=== PATIENT | female | born 1935 | race Caucasian/White ===

== ENCOUNTER 2016-09-14 13:18 | Inpatient (IN) ==
--- NOTE | 2016-09-14 14:05 | Diag Imaging Result Doc PS360 ---
FLAT/UPRIGHT ABD/1 VIEW CHEST - 09/14/2016 INDICATION: abd pain/constipation TECHNIQUE: Three views COMPARISON: 12/09/2015 FINDINGS: There is a rather large hiatal hernia behind the heart stable from prior. No infiltrates. Heart size is grossly normal. There is severe diffuse constipation with rectal stool impaction. There is a rectal stool ball measuring almost 10 cm. No small bowel obstruction. IMPRESSION: Severe constipation with rectal stool impaction. Electronically signed by Jeff Buckner 09/14/2016 2:03 PM
[2016-09-14 14:31] LABS: MANUAL DIFF NEEDED? NO
[2016-09-14] MEDS ORDERED: NS 1,000 ML IV ONE (14:31)
[2016-09-14 14:37] LABS: BASO% 0.5 % (0.0-0.8); EOS% 0.8 % (0.0-10.0); HEMATOCRIT 41.9 % (37.0-47.0); HEMOGLOBIN 13.8 g/dL (12.0-16.0); IMM GRAN# 0.06 X1000 (0.0-0.04); IMM GRAN% 0.5 % (0.0-0.5); LYMPH# 1.82 X1000 (1.2-3.4); LYMPH% 14.3 % (20.5-51.1); MCH 28.8 PG (27-31); MCHC 32.9 g/dL (33-37); MCV 87.5 FL (81-99); MONO# 0.99 X1000 (0.11-0.59); MONO% 7.8 % (1.7-9.3); NEUT% 76.1 % (42.2-75.2); PLT 259 X1000 (130-400); RBC 4.79 XMIL (4.2-5.4)
[2016-09-14 14:58] LABS: CALCIUM 9.3 mg/dL (8.8-10.2); POTASSIUM 4.2 mmol/L (3.5-5.1); TOTAL BILIRUBIN 0.4 mg/dL (0.20-1.00); TOTAL PROTEIN 7.8 g/dL (6.3-8.3)
[2016-09-14 15:38] LABS: BILIRUBIN URINE NEGATIVE (NEGATIVE); BLOOD URINE 4+ (NEGATIVE); CLARITY VERY CLOUDY (CLEAR); COLOR YELLOW; GLUCOSE URINE NEGATIVE (NEGATIVE); LEUKOCYTES URINE 2+ (NEGATIVE); NITRITE URINE NEGATIVE (NEGATIVE); PH URINE 6.5; PROTEIN URINE 1+(30 mg/dL) mg/dL (NEGATIVE); UROBILINOGEN URINE NORMAL
[2016-09-14 15:39] LABS: URINE SOURCE CLEAN CATCH
[2016-09-14 15:40] LABS: URINE CULTURE PL NEEDED? YES; URINE EPITHELIAL CELLS <10 /HPF (<10); URINE WBC TNTC /HPF (<10)
[2016-09-14] MEDS ORDERED: ROCEPHIN 1 GM/NS 1 GM/50 ML IVPB IV ONE (15:48)
--- NOTE | 2016-09-14 17:03 | Diag Imaging Result Doc PS360 ---
EXAM: CT ABD/PELVIS W/ IV CONT ONLY INDICATION: Abd pain TECHNIQUE: Dose reduction protocol was used. COMPARISON: Unenhanced CT dated 12/11/2015 FINDINGS: There is stable chronic elevation of the left hemidiaphragm. There is mild subsegmental atelectasis and/or scarring at the lung bases. There are small calcified granulomata in the spleen. There is a small amount of layering high dense sludge or stones in the gallbladder lumen. This is very vague. There is no pericholecystic inflammatory change appreciated. The liver is grossly unremarkable. The pancreas and adrenal glands are unremarkable. There are a few prominent nonobstructing intrarenal stones on the left. There is no hydronephrosis appreciated. There is gas in the lumen of the urinary bladder. There are several small gas droplets that appear to be associated with the wall of the urinary bladder. 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 There is no evidence of significant urinary bladder wall thickening or surrounding inflammatory stranding, however. On the delayed images, there is irregular nodularity at the posterior inferior wall of the urinary bladder. I can identify no discrete enhancement here, however. There is increased stool in the colon and a fairly large amount stool in the rectum suggesting rectal fecal impaction. The impacted rectum measures up to 7.8 cm in diameter. There is no evidence of bowel obstruction. There is uncomplicated sigmoid colonic diverticulosis. The reproductive tract is grossly unremarkable. There has been a prior right hip arthroplasty. 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 There are degenerative changes involving the spine. IMPRESSION: 1.Gas droplets in the urinary bladder with a few small droplets that may be associated wall of the bladder suggesting emphysematous cystitis. Please correlate clinically. 2.Nodular irregularity involving the posterior inferior wall of the urinary bladder with no definite enhancement that is nonspecific. Consider follow-up ultrasound. 3.Nonobstructive nephrolithiasis on the left. 4.Rectal fecal impaction. 5.Other incidental/nonacute findings detailed above. Electronically signed by Wili Berg 09/14/2016 5:01 PM
--- NOTE | 2016-09-14 17:31 | PROVIDER DOCUMENTATION ---
This chart was entered by Carmelo Ley Scribe, acting as scribe for Rajesh Gong MD. HPI-General Adult - General Chief Complaint: General Adult Stated Complaint: abdominal pain Time Seen by Provider: 09/14/16 14:14 Source: patient, family Allergies/Adverse Reactions: Patient Allergies Allergy/AdvReac Type Severity Reaction Status Date / Time acetaminophen Allergy Unknown Verified 09/14/16 13:28 morphine AdvReac Unknown Verified 09/14/16 13:28 Penicillins AdvReac Unknown Verified 09/14/16 13:28 Sulfa (Sulfonamide AdvReac Unknown Verified 09/14/16 13:28 Antibiotics) Home Medications: Home Medication List Medication Instructions Recorded Confirmed Last Taken Type Docusate Sodium 100 mg PO BID 12/23/14 01/14/16 01/13/16 07:00 History Mirtazapine 15 mg PO QHS 12/23/14 01/14/16 01/12/16 21:00 History Paroxetine [Paxil] 10 mg PO DAILY 12/23/14 01/14/16 01/12/16 21:00 History Aspirin EC 81 mg PO DAILY 12/07/15 01/14/16 12/10/15 History Gentamicin 0.3% Oph Drops 2 drop OPH PRN PRN 12/07/15 01/14/16 12/07/15 History Pantoprazole [Protonix] 40 mg PO DAILY@0700 12/07/15 01/14/16 01/13/16 07:00 History CefTRIAXONE 2 GM/NS [Rocephin 2 2 gm IV DAILY 01/08/16 01/14/16 01/13/16 13:00 History gm/Ns] Cilostazol 50 mg PO DAILY 01/08/16 01/14/16 01/13/16 07:00 History Folic Acid 1 mg PO DAILY 01/08/16 01/14/16 01/13/16 07:00 History Vancomycin 1 gm IV EVERY OTHER DAY 01/08/16 01/14/16 01/13/16 11:30 History Vitamin B Complex 1 each PO DAILY 01/08/16 01/14/16 01/13/16 07:00 History - History of Present Illness -Gen Adult Nature of Presenting Problems: Patient is a 81 y/o F that presents to the ER via EMS with abdominal pain that began this am. patient has been constipated over past few days. patient has history of UTI's as well. patient reports watching a doctor show on tv and it made her paranoid Location of Pain/Injury: reports: abdomen Quality of Pain: reports: aching, cramping Severity: reports: moderate Onset/Duration: reports: gradual, this morning Timing: reports: still present, improving Context/Activities at Onset: reports: none Modifying Factors: improves with: nothing Associated Symptoms: reports: constipation. denies: back/neck pain, chest pain , fever/chills, genitourinary problems, nausea, shortness of breath, vomiting Similar Symptoms Previously?: Yes Recently seen or treated by another doctor?: No Review of Systems - Adult - REVIEW OF SYSTEMS - ADULT Constitutional: denies: chills, fever Eyes: reports: no symptoms reported Ears, Nose, Mouth & Throat: denies: ear discharge, ear pain, sinus problem, throat pain, throat swelling Cardiovascular: denies: chest pain, palpitations, syncope Respiratory: denies: cough, shortness of breath, wheezing Gastrointestinal: reports: abdominal pain, constipation. denies: diarrhea, nausea, vomiting Genitourinary: reports: no symptoms reported Musculoskeletal: reports: no symptoms reported Integumentary: reports: no symptoms reported Neurological: reports: no symptoms reported Psychiatric: reports: no symptoms reported Endocrine: reports: no symptoms reported Hematologic/Lymphatic: reports: no symptoms reported Allergic/Immunologic: reports: no symptoms reported All Other Systems: Reviewed and Negative Past History - Adult - PAST MEDICAL HISTORY-ADULT Review of Records: reports: Old Records Reviewed Major Childhood Illnesses: reports: denies history Neurological: reports: CVA Endocrine/Immune: reports: Diabetes - PRIOR SURGERIES/PROCEDURES Surgical/Procedure History: reports: appendectomy, orthopedic (extremity), joint replacement - IMMUNIZATION STATUS Childhood Immunizations: See Nurse Assessment Flu Vaccine: See Nurse Assessment Physical Exam-General - PHYSICAL EXAM-ADULT Initial Vital Signs Reviewed: Yes - CONSTITUTIONAL General Appearance: alert, no apparent distress - EYES Eyes: PERRL/EOMI, pink conjunctivae - HEAD, EARS, NOSE, MOUTH & THROAT HENMT: normocephalic/atraumatic, moist mucous membranes, normal ENT inspection - NECK Neck: full range of motion, normal inspection - RESPIRATORY Respiratory: lungs clear, normal breath sounds, no respiratory distress, no accessory muscle use - CARDIOVASCULAR Cardiovascular: no edema, no murmur, tachycardia - GASTROINTESTINAL (ABDOMEN) Abdominal Exam: normal bowel sounds, soft, no organomegaly, no pulsatile mass, tenderness (suprapubic) - MUSCULOSKELETAL Back Exam: no CVA tenderness, no vertebral tenderness Extremity: no pedal edema, no calf tenderness - SKIN Integumentary: normal color, warm/dry - NEUROLOGIC 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, grossly normal - PSYCHIATRIC Psych/Mental Status: normal mood/affect, normal thought content, normal thought process, oriented x 3 Progress - PLAN OF CARE/RESULTS Progress/Plan/Lab Results: Vital Signs - 8 hr 09/14/16 13:31 Temperature 97 F L Pulse Rate 109 H Respiratory Rate 20 Blood Pressure 129/76 O2 Sat by Pulse Oximetry 97 Orders Category Date Time Status NPO Diet 09/14/16 13:23 Active FLAT/UPRIGHT ABD/1 VIEW CHEST [RAD] Stat Exams 09/14/16 13:23 Completed AMYLASE [CHEM] Stat Lab 09/14/16 13:23 Ordered CBC WITH ELECTRONIC DIFF [HEME] Stat Lab 09/14/16 13:23 Ordered COMPREHENSIVE METABOLIC PANEL [CHEM] Stat Lab 09/14/16 13:23 Ordered LIPASE [CHEM] Stat Lab 09/14/16 13:[address] W/POSS RFLX CULT [URINALYSIS] Stat Lab 09/14/16 13:23 Uncollected Vital Signs Temp Pulse Resp BP Pulse Ox 09/14/16 15:19 97.0 F L 105 H 20 128/80 96 09/14/16 13:31 97 F L 109 H 20 129/76 97 acetaminophen Allergy (Verified 09/14/16 13:28) Unknown morphine Adverse Reaction (Verified 09/14/16 13:28) Unknown Penicillins Adverse Reaction (Verified 09/14/16 13:28) Unknown Sulfa (Sulfonamide Antibiotics) Adverse Reaction (Verified 09/14/16 13:28) Unknown Docusate Sodium 100 mg PO BID 12/23/14 Mirtazapine 15 mg PO QHS 12/23/14 Paroxetine [Paxil] 10 mg PO DAILY 12/23/14 Aspirin EC 81 mg PO DAILY 12/07/15 Gentamicin 0.3% Oph Drops 2 drop OPH PRN PRN 12/07/15 Pantoprazole [Protonix] 40 mg PO DAILY@0700 12/07/15 CefTRIAXONE 2 GM/NS [Rocephin 2 gm/Ns] 2 gm IV DAILY 01/08/16 Cilostazol 50 mg PO DAILY 01/08/16 Folic Acid 1 mg PO DAILY 01/08/16 Vancomycin 1 gm IV EVERY OTHER DAY 01/08/16 Vitamin B Complex 1 each PO DAILY 01/08/16 Dietary Diet NPO Start TueSep 14 1323 Laboratory 09/14/16 09/14/16 09/14/16 15:00 14:30 14:30 WBC RBC Hgb Hct MCV MCH MCHC RDW Std Deviation Plt Count MPV Immature Gran % (Auto) Neut % (Auto) Lymph % (Auto) Collin % (Auto) Eos % (Auto) Baso % (Auto) Immature Gran # (Auto) Neut # (Auto) Lymph # (Auto) Collin # (Auto) Eos # (Auto) Baso # (Auto) Sodium Potassium Chloride Carbon Dioxide Anion Gap BUN Creatinine Estimated GFR/1.73 m2 BUN/Creatinine Ratio Glucose Calculated Osmolality Calcium Magnesium 2.4 Total Bilirubin AST ALT Alkaline Phosphatase Troponin T 0.029 Total Protein Albumin Globulin Albumin/Globulin Ratio Amylase Lipase Urine Source CLEAN CATCH Urine Color YELLOW Urine Clarity VERY CLOUDY A Urine pH 6.5 Ur Specific Matthews 1.010 Urine Protein 1+(30 mg/dL) A Urine Ketones NEGATIVE Urine Blood 4+ Urine Nitrite NEGATIVE Urine Bilirubin NEGATIVE Urine Urobilinogen NORMAL Urine Microscopic RBC 10-20 A Urine WBC 2+ A Urine Microscopic WBC TNTC A Ur Epithelial Cells <10 Urine Bacteria 3+ Urine Glucose NEGATIVE 09/14/16 09/14/16 14:28 14:28 WBC 12.74 H RBC 4.79 Hgb 13.8 Hct 41.9 MCV 87.5 MCH 28.8 MCHC 32.9 L RDW Std Deviation 16.3 H Plt Count 259 MPV 11.0 H Immature Gran % (Auto) 0.5 Neut % (Auto) 76.1 H Lymph % (Auto) 14.3 L Collin % (Auto) 7.8 Eos % (Auto) 0.8 Baso % (Auto) 0.5 Immature Gran # (Auto) 0.06 H Neut # (Auto) 9.71 H Lymph # (Auto) 1.82 Collin # (Auto) 0.99 H Eos # (Auto) 0.10 Baso # (Auto) 0.06 Sodium 137 Potassium 4.2 Chloride 102 Carbon Dioxide 22 L Anion Gap 13 BUN 27 H Creatinine 1.1 H Estimated GFR/1.73 m2 47 BUN/Creatinine Ratio 25 Glucose 112 H Calculated Osmolality 280 Calcium 9.3 Magnesium Total Bilirubin 0.40 AST 25 ALT 14 Alkaline Phosphatase 111 H Troponin T Total Protein 7.8 Albumin 4.0 Globulin 4.0 Albumin/Globulin Ratio 1.0 Amylase 56 Lipase 48 Urine Source Urine Color Urine Clarity Urine pH Ur Specific Matthews Urine Protein Urine Ketones Urine Blood Urine Nitrite Urine Bilirubin Urine Urobilinogen Urine Microscopic RBC Urine WBC Urine Microscopic WBC Ur Epithelial Cells Urine Bacteria Urine Glucose ct abd/pelv report 1)gas droplets in urinary bladder with a few small droplets suggesting emphysematous cystitis 2)nodular irregularity involving the posterior inferior wall of urinary bladder with no definite enhancement 3)nonobstructive nephrolithiasis on the left 4) rectal fecal impaction Result Diagrams: 09/14/16 14:28 09/14/16 14:28 - XRAY 1 XRAY Study: Chest, Abdomen Impression: Abnormal XRAY Interpretation: severe constipation with rectal stool impaction, hiatal hernia - CT/MRI 1 CT Study: Abdomen, Pelvis Impression: Abnormal CT Results: see progress note for complete report - CONSULTS/PCP/HOSPITALIST Notification #1 *Consult/PCP/Hospitalist*: ( irrigation installation specialist for hospitalist) Time Discussed: 17:24 Reason/Comments: uti, emphysematous cystitis Consult Disposition: Admit Departure - Departure Date of Disposition Decision: 09/14/16 Time of Disposition Decision: 17:27 DIAGNOSIS: UTI (urinary tract infection), Emphysematous cystitis, Abdominal pain Disposition: ADMITTED INPATIENT 09 Certified Medical Emergency: Emergent Condition: Stable Referrals and Follow-Ups: Donte Bar [Primary Care Provider] - - Critical Care Note This patient required my direct & personal management of CC.: No Attestation - Physician/ SHAKIRA Attestation Patient care was provided by Advanced Practice Provider:: No The physician spent face to face time with patient:: Yes Advanced Practice Provider documentation review:: Supervising physician onsite and consulted in the evaluation and care of this patient. The physician did have a face to face encounter with the patient. This chart was documented by the indicated scribe, (Carmelo Ley, Man) and accurately reflects the services I performed and decisions made by , Rajesh Gong MD, as attested by the provider's signature.
[2016-09-14] MEDS ORDERED: MISC. PHARMACY COMMUNICATION SCH (21:28)
[2016-09-14] MEDS ORDERED: VANCOMYCIN IV PER PHARMACY MISC SCH (21:28)
[2016-09-14] MEDS ORDERED: NS 1,000 ML IV SCH (21:28)
[2016-09-14] MEDS ORDERED: ZOFRAN IV PRN (21:28)
[2016-09-14] MEDS ORDERED: VANCOMYCIN 1 GM/NS 1 GM/250 ML IVPB IV ONE (22:00)
[2016-09-14] MEDS ORDERED: GENTAMICIN 0.3% OPH DROPS OPH PRN (22:47)
[2016-09-14] MEDS ORDERED: VANCOMYCIN 500 MG/NS 500 MG/100 ML IVPB IV ONE (23:00)
[2016-09-14] MEDS: MELATONIN PO SCH (23:32)
[2016-09-14] MEDS: PAXIL PO SCH (23:32)
[2016-09-14] MEDS: TRILAFON PO SCH (23:32)
[2016-09-14] MEDS: REMERON PO SCH (23:32)
[2016-09-14] MEDS: COLACE PO SCH (23:33)
[2016-09-15 06:12] LABS: HEMATOCRIT 39.4 % (37.0-47.0); HEMOGLOBIN 12.8 g/dL (12.0-16.0); MCH 28.7 PG (27-31); MCHC 32.5 g/dL (33-37); MCV 88.3 FL (81-99); MPV 11.9 FL (7.4-10.4); RBC 4.46 XMIL (4.2-5.4)
[2016-09-15] MEDS: PROTONIX PO SCH ×2 (06:13→08:28)
[2016-09-15] MEDS: PRILOSEC PO SCH ×2 (06:13→08:28)
[2016-09-15 06:25] LABS: CALCIUM 8.8 mg/dL (8.8-10.2); POTASSIUM 4.1 mmol/L (3.5-5.1)
[2016-09-15] MEDS ORDERED: NON-FORMULARY BULK MED PR SCH (08:00)
[2016-09-15] MEDS: COLACE PO SCH ×2 (08:27→20:17)
[2016-09-15] MEDS: PLETAL PO SCH (08:27)
[2016-09-15] MEDS: ASPIRIN EC PO SCH (08:29)
[2016-09-15] MEDS: FOLTX PO SCH (08:29)
[2016-09-15] MEDS: TRILAFON PO SCH ×2 (08:29→20:17)
[2016-09-15] MEDS: FOLIC ACID PO SCH ×2 (08:29→20:17)
--- NOTE | 2016-09-15 08:42 | PROGRESS NOTE ---
DATE: 09/15/2016 SUBJECTIVE: Patient notes that she is feeling a little bit better this morning. Denies any chest pain or palpitations. OBJECTIVE: Vital Signs: Reviewed. Temperature 97 degrees, pulse 84, respiratory rate 18, BP 125/61, saturation 97% on room air. General: Patient is awake alert, oriented. Currently in no respiratory distress. Neck: Supple. CV: Regular rate. Chest: Clear. Abdomen: Soft. Extremities: Moves all extremities. Neurologic: No changes. ASSESSMENT: 1. Leukocytosis, slightly improved. WBCs dropped from 12-10. 2. Urinary tract infection. Continue antibiotics. 3. Nonobstructive nephrolithiasis on the left. 4. Rectal impaction. We will continue symptomatic treatment. cc: Skyler Ascencio MD
[2016-09-15] MEDS: ROCEPHIN 1 GM/NS 1 GM/50 ML IVPB IV SCH (16:03)
[2016-09-15] MEDS ORDERED: CALMOSEPTINE OINTMENT TOP PRN (18:17)
[2016-09-15] MEDS: REMERON PO SCH (20:17)
[2016-09-15] MEDS: PAXIL PO SCH (20:17)
[2016-09-15] MEDS: MELATONIN PO SCH (20:18)
[2016-09-16] MEDS: PROTONIX PO SCH (06:07)
[2016-09-16] MEDS: PRILOSEC PO SCH ×2 (06:10→08:35)
[2016-09-16] MEDS: PLETAL PO SCH (08:35)
[2016-09-16] MEDS: FOLIC ACID PO SCH ×2 (08:35→20:50)
[2016-09-16] MEDS: ASPIRIN EC PO SCH (08:35)
[2016-09-16] MEDS: COLACE PO SCH ×2 (08:35→20:50)
[2016-09-16] MEDS: FOLTX PO SCH (08:35)
[2016-09-16] MEDS: TRILAFON PO SCH ×2 (08:35→20:50)
--- NOTE | 2016-09-16 08:57 | PROGRESS NOTE ---
DATE: 09/16/2016 SUBJECTIVE: Patient without any new complaints today. In fact, she is somewhat uninterested in answering questions this morning. OBJECTIVE: Vital Signs: Temp 98, pulse 71, respiratory rate 18, BP 116/56, sat 96% on room air. General: The patient is awake, alert. She is in no respiratory distress. She does respond to commands after being asked a couple of times. HEENT: Normocephalic, atraumatic. Neck: Supple. CV: Regular rate. Chest: Relatively clear. Abdomen: Soft. Extremities: Moves all extremities. Neurologic: No changes. LABORATORY DATA: CBC normal. CMP unchanged. Urinalysis growing gram-negative rods. ASSESSMENT: 1. Leukocytosis, improved. 2. Urinary tract infection growing gram-negative rods. Continue antibiotics. 3. Nonobstructive nephrolithiasis on the left. We will discuss with Urology as she certainly may need removal of stones with the current urinary tract infection. 4. Rectal impaction, improved. We will recheck KUB today. cc: Skyler Ascencio MD
--- NOTE | 2016-09-16 08:58 | Diag Imaging Result Doc PS360 ---
EXAM: KUB ABDOMEN HISTORY: constipation TECHNIQUE: COMPARISON: 09/14/2016 FINDINGS: There continues to be stool throughout the colon. The bowel loops are not dilated. No organomegaly. Mild scoliosis with degenerative spine changes. Moderate atherosclerosis. There has been prior orthopedic replacement of the right hip. IMPRESSION: Persistent constipation although this appears slightly less pronounced than on the prior exam. Electronically signed by Carson Reyna 09/16/2016 8:56 AM
[2016-09-16] MEDS ORDERED: VANCOMYCIN 1,300 MG in NS 250 ML IV SCH (10:00)
--- NOTE | 2016-09-16 15:31 | HISTORY AND PHYSICAL ---
CHIEF COMPLAINT: Abdominal pain, confusion. HISTORY OF PRESENT ILLNESS: This is an 81-year-old female who presented to the emergency room via EMS after becoming confused. The daughter states that the patient was watching a doctor show and became confused shortly after but later in the visit, the daughter stated that she and the son had argued and the mother became confused. The daughter denied knowing any other complaints or illnesses from the mother other than abdominal pain secondary to constipation. The daughter states that constipation is a problem with the patient and that she had used MiraLAX in the past with a good result but the patient has been changed to Colace and once changed she has started having recurring problems of constipation. They deny any diarrhea, liquid stools, any black or bloody vomitus or stools. CT scan of the abdomen and pelvis was performed which revealed gas droplets in the bladder suggesting emphysematous cystitis, a rectal fecal impaction measuring up to 7.8 cm in diameter with no evidence of bowel obstruction. She was given Colace and admitted for further evaluation and treatment. PAST MEDICAL HISTORY: CVA a few years ago, diabetes type 2 controlled with diet, recurrent UTI. PAST SURGICAL HISTORY: Appendectomy, joint replacement. SOCIAL HISTORY: She lives with her daughter. The daughter and patient deny alcohol, tobacco, or illicit drug use. ALLERGIES: Tylenol, morphine, penicillin, and sulfa with unknown reactions. HOME MEDICATIONS: A list will be obtained. REVIEW OF SYSTEMS: A 14 point review of systems is discussed with the patient. Pertinent positives stated in the HPI. The daughter states that the patient has had no other complaints that she is aware of and the patient is confused at present and we are unable to ascertain this. PHYSICAL EXAMINATION: VITAL SIGNS: Blood pressure 129/76 with a heart rate of 100, respirations are 20, temperature is 97 degrees, with room air saturations of 96 to 98%. HEENT: Head is normocephalic, atraumatic. Pupils equal, round, react to light. EOMs are intact. Sclerae anicteric. Mucous membranes are moist. NECK: Supple. Trachea midline. CARDIOVASCULAR: Tachycardic. S1 and S2 are heard. She has regular rate and rhythm with no murmurs, gallops, or rubs noted. PULMONARY: Breath sounds are coarse throughout, unlabored. Chest does rise and fall symmetrically respiration. GASTROINTESTINAL: Abdomen is soft, nontender, nondistended, with bowel sounds in all 4 quadrants. EXTREMITIES: No clubbing, cyanosis, or edema. Pulses are palpable x4. NEUROLOGIC: She is confused. She is able to state her name, her family's name, her birthday. She does move all extremities at random. DIAGNOSTICS: WBC is 12.7 with a hemoglobin of 13.8, hematocrit 41.9, and platelets of 259,000. Sodium 137, potassium 4.2, BUN 27, creatinine 1.1, with a glucose of 112. Urinalysis reveals too numerous to count white blood cells, 10-20 red blood cells, and 3+ bacteria. CT of the abdomen and pelvis revealed: 1. Gas droplets in the bladder. 2. Nodular irregularity involving the posterior inferior wall of the bladder with no definite enhancement, with follow up ultrasound recommended. 3. Nonobstructive nephrolithiasis on the left. 4. Rectal fecal impaction up to 7.8 cm in diameter. ASSESSMENT: This is an 81-year-old female who is lying in the bed, confused but pleasant. 1. Altered mental status. 2. Leukocytosis. 3. Urinary tract infection. 4. Nonobstructing nephrolithiasis on the left. 5. Nodular irregularity involving the posterior inferior wall of the bladder with no definite enhancement. 6. Rectal fecal impaction PLAN: The patient will be admitted to the hospital. She will receive neuro checks. She will be placed on telemetry. We will give IV gentle hydration. Urine cultures were obtained. We will continue vancomycin as well as Rocephin. We will identify her home medications and continue as appropriate. We will give milk of molasses enemas for the rectal impaction. We will trend her labs. The patient will ultimately need follow up outpatient with urology for nonobstructing nephrolithiasis as well as nodular irregularity involving the posterior inferior wall of the urinary bladder. Dictated by FRANCISCA Enrique for Skyler Ascencio MD cc: FRANCISCA Enrique MD
[2016-09-16] MEDS: ROCEPHIN 1 GM/NS 1 GM/50 ML IVPB IV SCH (18:22)
[2016-09-16] MEDS: MELATONIN PO SCH (20:50)
[2016-09-16] MEDS: REMERON PO SCH (20:50)
[2016-09-16] MEDS: PAXIL PO SCH (20:50)
[2016-09-17] MEDS: PROTONIX PO SCH (06:04)
[2016-09-17] MEDS: VICON-C PO SCH (08:17)
[2016-09-17] MEDS: LACTULOSE PO SCH ×2 (08:17→20:33)
[2016-09-17] MEDS: TRILAFON PO SCH ×2 (08:17→20:34)
[2016-09-17] MEDS: CEFZIL PO SCH ×2 (08:17→20:33)
[2016-09-17] MEDS: ASPIRIN EC PO SCH (08:18)
[2016-09-17] MEDS: PLETAL PO SCH (08:18)
[2016-09-17] MEDS: COLACE PO SCH ×2 (08:18→20:33)
[2016-09-17] MEDS: FOLIC ACID PO SCH ×2 (08:18→20:34)
--- NOTE | 2016-09-17 12:43 | PROGRESS NOTE ---
DATE: 09/17/2016 SUBJECTIVE: Patient has no new complaints today. She is lying in the bed, watching TV. OBJECTIVE: Vital Signs: Blood pressure is 134/64 with a heart rate of 78, respirations 18, temperature 97.9 degrees with room air saturations 97-98%. General: She is awake and alert, in no respiratory distress. She is watching TV. Cardiovascular: Regular rate and rhythm. S1, S2 appreciated. Pulmonary: Breath sounds are clear with no increased work of breathing noted. Gastrointestinal: Soft, nondistended, with bowel sounds in all 4 quadrants. PROBLEM LIST: 1. Leukocytosis. 2. Rectal impaction, constipation. KUB revealed persistent constipation although appears to be slightly less pronounced than on prior exam. Continues to be stool throughout the colon. 3. We will give lactulose b.i.d. and follow. 4. Urinary tract infection. In reviewing her chart, she does have a clean-catch urine from 09/14/2016 that is growing E. coli. On 09/16 she had a cath urine that revealed no growth. The urine specimen on the could have been contaminated although the patient did receive antibiotics for over 24 hours prior to the 2nd culture being sent down. We will continue her current antibiotic regimen although we will stop vancomycin. 5. Nonobstructive nephrolithiasis on the left. We will discuss with Urology as she may removal of stones with recurrent urinary tract infection. This can be done on an outpatient basis. Dictated by FRANCISCA Enrique for Skyler Ascencio MD cc: FRANCISCA Enrique MD
--- NOTE | 2016-09-17 17:22 | PROGRESS NOTE ---
DATE: 09/17/2016 SUBJECTIVE: Patient without any new complaints. States overall she is feeling okay but unfortunately, she is confused. PHYSICAL: Vital Signs: Reviewed. She is afebrile. Temp 98 degrees, pulse 80, respiratory 20. General: Patient is awake, alert. She is currently in no respiratory distress. She is pleasant to talk with. She is awake, alert, but disoriented. Neck: Supple. CV: Regular rate. Chest: Relatively clear. Abdomen: Soft. Extremities: Moves all extremities. Neurologic: No changes. ASSESSMENT: 1. Leukocytosis resolved. 2. Urinary tract infection. E. coli, resistant to Levaquin sensitive to Bactrim but she is allergic. Will stop vancomycin, place her on Cefzil. 3. Nonobstructive nephrolithiasis on the left. Certainly will need Urology input as an outpatient. 4. Constipation. Will add lactulose. PLAN: Hopefully, the patient can be discharged tomorrow if her symptoms remain stable. cc: Skyler Ascencio MD
[2016-09-17] MEDS: MELATONIN PO SCH (20:33)
[2016-09-17] MEDS: PAXIL PO SCH (20:34)
[2016-09-17] MEDS: REMERON PO SCH (20:34)
[2016-09-18 06:28] LABS: ALBUMIN 3.3 g/dL (3.5-5.0); CALCIUM 8.6 mg/dL (8.8-10.2); MAGNESIUM 2.4 mg/dL (1.5-2.7); POTASSIUM 4.1 mmol/L (3.5-5.1); TOTAL BILIRUBIN 0.2 mg/dL (0.20-1.00); TOTAL PROTEIN 6.5 g/dL (6.3-8.3)
[2016-09-18] MEDS: PROTONIX PO SCH (06:28)
[2016-09-18 06:43] LABS: HEMATOCRIT 33.1 % (37.0-47.0); HEMOGLOBIN 10.5 g/dL (12.0-16.0); MCH 28.2 PG (27-31); MCHC 31.7 g/dL (33-37); MPV 11.8 FL (7.4-10.4); RBC 3.72 XMIL (4.2-5.4)
[2016-09-18] MEDS: PLETAL PO SCH (09:07)
[2016-09-18] MEDS: LACTULOSE PO SCH (09:07)
[2016-09-18] MEDS: COLACE PO SCH (09:08)
[2016-09-18] MEDS: CEFZIL PO SCH (09:08)
[2016-09-18] MEDS: ASPIRIN EC PO SCH (09:08)
[2016-09-18] MEDS: VICON-C PO SCH (09:08)
[2016-09-18] MEDS: TRILAFON PO SCH (09:08)
[2016-09-18] MEDS: FOLIC ACID PO SCH (09:08)
[2016-09-18 12:57] VITALS: BP 105/52
--- NOTE | 2016-09-18 16:37 | DISCHARGE SUMMARY ---
ADMISSION DATE: 09/14/2016 DISCHARGE DATE: 09/18/2016 DIAGNOSES: 1. Urinary tract infection Escherichia coli currently on Cefzil. 2. Leukocytosis resolved. 3. Nonobstructive nephrolithiasis on the left. 4. Constipation. 5. Nodular irregularity involving the posterior inferior wall the bladder. DIAGNOSTICS: 1. 09/14/2016 abdominal x-ray reveals severe constipation with rectal stool impaction. 2. CT of the abdomen and pelvis reveals nodular irregularity involving the posterior inferior wall of bladder, no definite enhancement. Nonobstructive nephrolithiasis on the left. Rectal fecal impaction. 3. 09/16/2016 abdominal x-ray, persistent constipation although appears less pronounced. HOSPITAL COURSE: Ms. Couch presented to the emergency room complaining of abdominal pain and confusion. Family stated that she was watching a doctor show and became confused. Later it was said that the son and mother argued in front the patient and she became confused. The daughter did state that the patient had been complaining of abdominal pain and constipation which she has had chronic problems with, at home she used MiraLAX with a good result but they had changed her to Colace because of regular bowel movements on the MiraLAX. She was given multiple milk and molasses enemas as well as MiraLAX, Colace, lactulose for multiple bowel movements and she denied any further abdominal pain. She was found to have a E. coli UTI for which she was given vancomycin and she is being placed on Cefzil for discharge. Her mental status did return to her baseline. DISCHARGE PHYSICAL EXAMINATION: Cardiovascular: Regular rate and rhythm, S1, S2 appreciated. Pulmonary: Breath sounds are clear. No increased work of breathing noted. Gastrointestinal: Abdomen is soft, nontender, nondistended. Bowel sounds in all 4 quadrants. Extremities: No clubbing, cyanosis or edema. Calves nontender. Pulses palpable x4. Neurologic: She is alert, she is oriented to herself and family members, occasionally oriented to being in the hospital. She is unaware of the day and time and family state this is her normal. Vital Signs: Blood pressure is 124/54 with a heart rate of 79, respirations 18, temperature 98.3 degrees oral with room air saturations 99-100 . DISCHARGE MEDICATIONS: Protonix 40 daily, melatonin 3 mg at bedtime, Trilafon 2 mg b.i.d., Colace 100 mg b.i.d., Pletal 50 mg daily, enteric-coated aspirin 81 mg daily, folic acid b.i.d., Remeron 15 mg at bedtime, vitamin B complex daily, Paxil 10 mg at bedtime, lactulose 30 mL b.i.d. and Cefzil 500 mg q.12 hours. FOLLOWUP: 1. She is to follow with her primary care physician in next 1-2 weeks. 2. She is to follow Dr. Dustin Alberto, urology in the next 2-4 weeks for evaluation of nonobstructing renal stones as well as nodular irregularity involving the posterior inferior wall of the bladder. She is being discharged home in stable condition with family members. TIME SPENT: This is a greater than 30 minute discharge. Dictated by FRANCISCA Enrique for Skyler Ascencio MD cc: FRANCISCA Enrique MD
== END 2016-09-18 14:40 | disposition home health service (06) ==
LOC: P.MEDSURG 13:18 → P.ED 13:18 → OBSVTOIN 18:51 → P.MEDSURG 19:38
PROVIDERS: ATTEND Family Medicine